=== PATIENT | female | born 1965 | race Two or more races ===

== ENCOUNTER 2023-12-17 15:00 | Inpatient (IN) | payer SELFPAY ==
[~2023-12-17] VITALS: Ht 154.9 cm; Wt 76.7 kg
[2023-12-17 17:58] LABS: CALCIUM, SERUM 7.8 mg/dL (8.5-10.1); CARBON DIOXIDE 19 mmol/L (21-32); CHLORIDE 113 mmol/L (98-107); CREATININE 2.3 mg/dL (0.6-1.3); GLUCOSE 87 mg/dL (74-106); POTASSIUM 5.6 mmol/L (3.5-5.1); SODIUM SERUM 139 mmol/L (136-145); UREA NITROGEN, BLOOD 63 mg/dL (7-18)
[2023-12-17 18:01] LABS: SITE, VBG Right Radial; VBG BASE EXCESS -6.2 mmol/L (-3-3); VBG COHb 0.3 %; VBG MetHb 0.4 %; VBG O2Hb 95.1 %; VBG OXYGEN SATURATION 95.8 %; VBG PCO2 31.4 mmHg (40-52); VBG PH 7.379 (7.31-7.41); VBG PO2 84.3 mmHg (30-50); VBG TOTAL HEMOGLOBIN 9.2 G/dL (12.0-16.0); VENT MODE, VBG 21%
[2023-12-17 18:04] LABS: BASOPHILS # (AUTO) 0.1 K/uL (0.0-0.2); BASOPHILS % (AUTO) 0.8 % (0.0-2.0); EOSINOPHILS # (AUTO) 0.1 K/uL (0.0-0.7); EOSINOPHILS % (AUTO) 1.6 % (0.0-6.0); HEMATOCRIT 28 % (33-45); HEMOGLOBIN 8.5 g/dL (11.5-14.8); LYMPHOCYTES # (AUTO) 0.6 K/uL (0.8-4.8); LYMPHOCYTES % (AUTO) 9.6 % (20.0-44.0); MEAN CORPUSCULAR HEMOGLOBIN 28 PG (26.0-33.0); MEAN CORPUSCULAR HGB CONC 31 g/dl (31.0-36.0); MEAN CORPUSCULAR VOLUME 92 fL (82-100); MONOCYTES # (AUTO) 0.6 K/uL (0.1-1.30); MONOCYTES % (AUTO) 9.5 % (2.0-12.0); NEUTROPHILS # (AUTO) 5.3 K/uL (1.8-8.9); NEUTROPHILS % (AUTO) 78.5 % (43.0-81.0); PLATELET COUNT (AUTO) 161 K/uL (150-450); RED BLOOD CELL COUNT(AUTO) 3.01 MIL/uL (4.0-5.2); RED CELL DISTRIBUTION WIDTH 18.1 % (11.5-15.0); WHITE BLOOD COUNT (AUTO) 6.7 K/uL (4.3-11.0)
[2023-12-17 18:07] LABS: LACTIC ACID 0.8 mmol/L (0.4-2.0)
[2023-12-17] MEDS ORDERED: FUROSEMIDE 40 MG/4 ML VIAL ONE (19:05)
[2023-12-17] MEDS ORDERED: PIPERACI/TAZO 3.375GM/D5W 50ML PB IV ONE (19:05)
[2023-12-17] MEDS: PIPERACILLIN /TAZOBACTAM 3.375 G in IV D5W 50 ML IV ONE (19:13)
[2023-12-17] MEDS: FUROSEMIDE 100 MG/10 ML VIAL IV ONE (19:13)
[2023-12-17] MEDS: LACTULOSE 10 G/15 ML UDC (PYXIS) PO ONE (19:38)
[2023-12-17] MEDS ORDERED: LACTULOSE 10 G/15 ML UDC (PYXIS) ONE (19:38)
[2023-12-17] MEDS ORDERED: ZOLPIDEM TARTRATE 5 MG TABLET PO PRN (23:30)
[2023-12-17] MEDS ORDERED: Z GUARD REMEDY 4 OZ OINT TP PRN (23:30)
[2023-12-18] VITALS: BP 147/77; TEMP 97.5; O2SAT 98
[2023-12-18] MEDS ORDERED: VANCOMYCIN 500 MG VIAL ONE (00:31)
[2023-12-18] MEDS: FUROSEMIDE 40 MG/4 ML VIAL IV SCH ×2 (00:37→18:20)
[2023-12-18] MEDS: LACTULOSE 10 G/15 ML UDC (PYXIS) PO SCH (00:37)
[2023-12-18] MEDS: VANCOMYCIN HCL 1.25 GM in IV D5W 250 ML IV ONE (00:38)
[2023-12-18 06:12] VITALS: BP 124/93; TEMP 97.5; O2SAT 100
[2023-12-18] MEDS: BLOOD SUGAR DIAGNOSTIC 1 EACH STRIP IN SCH (06:42)
[2023-12-18] MEDS: INSULIN REGULAR, HUMAN 100 UNIT/ML 3 ML VIAL SQ PRN (06:42)
[2023-12-18 07:20] LABS: BASOPHILS # (AUTO) 0.1 K/uL (0.0-0.2); BASOPHILS % (AUTO) 0.9 % (0.0-2.0); EOSINOPHILS # (AUTO) 0.1 K/uL (0.0-0.7); EOSINOPHILS % (AUTO) 1.4 % (0.0-6.0); HEMATOCRIT 27 % (33-45); HEMOGLOBIN 8.3 g/dL (11.5-14.8); LYMPHOCYTES # (AUTO) 0.7 K/uL (0.8-4.8); LYMPHOCYTES % (AUTO) 10.2 % (20.0-44.0); MEAN CORPUSCULAR HEMOGLOBIN 29 PG (26.0-33.0); MEAN CORPUSCULAR HGB CONC 31 g/dl (31.0-36.0); MEAN CORPUSCULAR VOLUME 95 fL (82-100); MONOCYTES # (AUTO) 0.9 K/uL (0.1-1.30); NEUTROPHILS # (AUTO) 5.4 K/uL (1.8-8.9); NEUTROPHILS % (AUTO) 75.5 % (43.0-81.0); PLATELET COUNT (AUTO) 153 K/uL (150-450); RED BLOOD CELL COUNT(AUTO) 2.86 MIL/uL (4.0-5.2); RED CELL DISTRIBUTION WIDTH 18.8 % (11.5-15.0); WHITE BLOOD COUNT (AUTO) 7.1 K/uL (4.3-11.0)
[2023-12-18 07:30] VITALS: BP 126/56; TEMP 98.4; O2SAT 98
[2023-12-18 07:52] LABS: CREATININE 2.5 mg/dL (0.6-1.3); MAGNESIUM 2.1 mg/dL (1.8-2.4); PHOSPHORUS 4.6 mg/dL (2.5-4.9); POTASSIUM 5.2 mmol/L (3.5-5.1)
[2023-12-18 08:31] LABS: THYROID STIMULATING HORMONE 2.623 uIU/mL (0.358-3.74)
[2023-12-18] MEDS: PANTOPRAZOLE 40 MG TABLET.DR PO SCH (08:41)
[2023-12-18] MEDS: ENOXAPARIN SODIUM 30 MG/0.3 ML DISP.SYRIN SQ SCH (08:46)
[2023-12-18 16:00] VITALS: BP 161/80; TEMP 97.7; O2SAT 100
[2023-12-18 20:00] VITALS: BP 149/81; TEMP 97.9; O2SAT 98
[2023-12-18] MEDS: CEFEPIME 1 GM in IV D5W 50 ML IV SCH (21:27)
[2023-12-18 23:29] LABS: APPEARANCE,URINE CLEAR (CLEAR); BILIRUBIN,URINE NEGATIVE (NEGATIVE); BLOOD, URINE 1+ Ery/uL (NEGATIVE); COLOR,URINE YELLOW (YELLOW); KETONES,URINE NEGATIVE (NEGATIVE); LEUKOCYTE ESTERASE ,URINE NEGATIVE (NEGATIVE); NITRITE, URINE NEGATIVE (NEGATIVE); PH,URINE 5.5 (5.0-8.0); PROTEIN,URINE TRACE mg/dl (NEGATIVE); UGLUCOSE NEGATIVE (NEGATIVE); UROBILINOGEN,URINE 0.2 EU/dL (0.2)
[2023-12-18 23:30] LABS: ADD URINE CULTURE NO; BACTERIA,URINE Rare /HPF (None Seen); SQUAMOUS EPITHELIAL CELL,UR Rare /HPF (None Seen); WBC,URINE 0-2 /HPF (0-3)
[2023-12-19] VITALS: BP_SYST 147; BP_DIAS 84; BP_DIAS 89; TEMP 97.5; O2SAT 97
[2023-12-19 04:00] VITALS: BP_SYST 149; BP_SYST 151; BP_DIAS 73; BP_DIAS 81; TEMP 97.8; TEMP 97.9; O2SAT 96; O2SAT 98
[2023-12-19 06:49] LABS: APPEARANCE,URINE SLIGHTLY CLOUDY (CLEAR); BILIRUBIN,URINE NEGATIVE (NEGATIVE); BLOOD, URINE 2+ Ery/uL (NEGATIVE); COLOR,URINE YELLOW (YELLOW); KETONES,URINE NEGATIVE (NEGATIVE); LEUKOCYTE ESTERASE ,URINE 1+ (NEGATIVE); NITRITE, URINE NEGATIVE (NEGATIVE); PH,URINE 5.5 (5.0-8.0); PROTEIN,URINE 1+ mg/dl (NEGATIVE); UGLUCOSE NEGATIVE (NEGATIVE); UROBILINOGEN,URINE 0.2 EU/dL (0.2)
[2023-12-19 07:06] LABS: ADD URINE CULTURE YES; BACTERIA,URINE Rare /HPF (None Seen); SQUAMOUS EPITHELIAL CELL,UR Rare /HPF (None Seen)
[2023-12-19 07:21] LABS: BASOPHILS # (AUTO) 0.1 K/uL (0.0-0.2); BASOPHILS % (AUTO) 1.1 % (0.0-2.0); EOSINOPHILS # (AUTO) 0.2 K/uL (0.0-0.7); HEMATOCRIT 28 % (33-45); HEMOGLOBIN 8.6 g/dL (11.5-14.8); LYMPHOCYTES % (AUTO) 19.3 % (20.0-44.0); MEAN CORPUSCULAR HEMOGLOBIN 29 PG (26.0-33.0); MEAN CORPUSCULAR HGB CONC 31 g/dl (31.0-36.0); MEAN CORPUSCULAR VOLUME 92 fL (82-100); MONOCYTES # (AUTO) 0.5 K/uL (0.1-1.30); MONOCYTES % (AUTO) 10.4 % (2.0-12.0); NEUTROPHILS # (AUTO) 3.4 K/uL (1.8-8.9); NEUTROPHILS % (AUTO) 65.2 % (43.0-81.0); PLATELET COUNT (AUTO) 157 K/uL (150-450); RED BLOOD CELL COUNT(AUTO) 2.99 MIL/uL (4.0-5.2); RED CELL DISTRIBUTION WIDTH 18.7 % (11.5-15.0); WHITE BLOOD COUNT (AUTO) 5.2 K/uL (4.3-11.0)
[2023-12-19 07:22] LABS: EOSINOPHIL,URINE None Seen
[2023-12-19 07:30] VITALS: BP 165/87; TEMP 97.7; O2SAT 99
[2023-12-19 07:36] LABS: CREATININE, URINE 16.1 MG/DL (30.0-125.0)
[2023-12-19 07:48] LABS: ALBUMIN 2.1 g/dL (3.4-5.0); BILIRUBIN,TOTAL 0.6 mg/dL (0.2-1.0); CALCIUM, SERUM 8.2 mg/dL (8.5-10.1); CREATININE 2.4 mg/dL (0.6-1.3); PHOSPHORUS 4.6 mg/dL (2.5-4.9); POTASSIUM 4.9 mmol/L (3.5-5.1)
[2023-12-19] MEDS: NYSTATIN CREAM 15 GM TUBE TP SCH (13:00)
[2023-12-19] MEDS: VANCOMYCIN 1 GM in IV D5W 250 ML IV SCH (13:23)
[2023-12-19 16:13] VITALS: BP 143/78; TEMP 97.3; O2SAT 99
[2023-12-19 20:00] VITALS: BP 147/73; TEMP 97.6; O2SAT 99
[2023-12-19] MEDS: VANCOMYCIN 1 GM /D5W 250 ML PB IV ONE ×2 (22:52)
[2023-12-20] VITALS: BP 155/80; TEMP 98.2; O2SAT 99
[2023-12-20 04:00] VITALS: BP 146/79; TEMP 97.7; O2SAT 100
[2023-12-20 07:59] LABS: CALCIUM, SERUM 8.1 mg/dL (8.5-10.1); CREATININE 2.5 mg/dL (0.6-1.3)
[2023-12-20 08:42] VITALS: BP 166/88; TEMP 97.9; O2SAT 99
[2023-12-20 09:08] LABS: PTH, INTACT 68 pg/mL (15-65)
[2023-12-20 11:24] VITALS: BP 150/83; TEMP 98.5; O2SAT 98
[2023-12-20 15:47] VITALS: BP 158/79; TEMP 99.6; O2SAT 96
[2023-12-20] MEDS ORDERED: hydrALAZINE HCL IV 20 MG VIAL IV PRN (17:30)
[2023-12-20] MEDS: ASPIRIN EC 81 MG TABLET.DR PO SCH (18:01)
[2023-12-20] MEDS: METOPROLOL TARTRATE 25 MG TABLET PO SCH (18:02)
[2023-12-20 20:00] VITALS: BP 157/88; TEMP 98.4; O2SAT 99
[2023-12-20] MEDS: ATORVASTATIN 10 MG TABLET PO SCH (21:10)
[2023-12-21] VITALS: BP 136/73; TEMP 98.2; O2SAT 99
[2023-12-21 04:00] VITALS: BP 140/69; TEMP 97.9; O2SAT 100
[2023-12-21 07:00] VITALS: BP 148/76; TEMP 97.9; O2SAT 100
[2023-12-21 07:02] LABS: CREATININE 2.5 mg/dL (0.6-1.3); POTASSIUM 5.1 mmol/L (3.5-5.1)
[2023-12-21 16:00] VITALS: BP 134/65; TEMP 97.6; O2SAT 99
[2023-12-21 20:00] VITALS: BP 133/74; TEMP 97.5; O2SAT 100
[2023-12-21] MEDS: MAG HYDROX/AL HYDROX/SIMETH 30 ML UDC PO PRN (23:00)
[2023-12-21] MEDS: VANCOMYCIN 750 MG in IV D5W 250 ML IV SCH (23:05)
[2023-12-22] VITALS: BP 134/84; TEMP 98.4; O2SAT 100
[2023-12-22] MEDS: HYDROCODONE/APAP 5/325MG TABLET PO PRN (01:39)
[2023-12-22 04:00] VITALS: BP 146/75; TEMP 97.6; O2SAT 97
[2023-12-22 04:51] VITALS: BP 146/75; TEMP 97.6; O2SAT 97
[2023-12-22 07:41] LABS: CALCIUM, SERUM 7.9 mg/dL (8.5-10.1); CREATININE 2.6 mg/dL (0.6-1.3); POTASSIUM 5.7 mmol/L (3.5-5.1)
[2023-12-22 08:00] VITALS: BP 134/83; TEMP 97.5; O2SAT 99
[2023-12-22] MEDS ORDERED: SODIUM BICARBONATE SYR 50 MEQ/50 ML DISP.SYRIN IV ONE (08:30)
[2023-12-22] MEDS: SODIUM POLYSTYRENE SULFONATE 15 G/60 ML BOTTLE PO ONE ×2 (08:30→11:46)
[2023-12-22] MEDS ORDERED: ONDANSETRON HCL 4 MG/5 ML SOLUTION PO PRN (09:00)
[2023-12-22] MEDS: CITRIC ACID/SODIUM CITRATE (BICITRA)15 ML UDC PO SCH (09:40)
[2023-12-22 14:57] LABS: BILIRUBIN,TOTAL 0.5 mg/dL (0.2-1.0); CALCIUM, SERUM 7.9 mg/dL (8.5-10.1); CREATININE 2.7 mg/dL (0.6-1.3); POTASSIUM 5.4 mmol/L (3.5-5.1); TOTAL PROTEIN, SERUM 7.5 g/dL (6.4-8.2)
[2023-12-22 16:00] VITALS: BP 150/81; TEMP 97.3; O2SAT 99
[2023-12-22 20:00] VITALS: BP 132/66; TEMP 97; O2SAT 97
[2023-12-23] VITALS: BP 133/71; TEMP 97.4; O2SAT 98
[2023-12-23 05:00] VITALS: BP 135/53; TEMP 97.3; O2SAT 97
[2023-12-23 07:11] LABS: *SPE A/G RATIO 0.5 (0.7-1.7); *SPE ALBUMIN 2.4 g/dL (2.9-4.4); *SPE ALPHA-1-GLOBULIN 0.3 g/dL (0.0-0.4); *SPE ALPHA-2-GLOBULIN 0.6 g/dL (0.4-1.0); *SPE BETA GLOBULIN 0.9 g/dL (0.7-1.3); *SPE GLOBULIN, TOTAL 4.9 g/dL (2.2-3.9); *SPE M-SPIKE Not Observed g/dL (Not Observed); *SPE PROTEIN TOTAL 7.3 g/dL (6.0-8.5); *SPEGAMMA GLOBULIN 3.1 g/dL (0.4-1.8)
[2023-12-23 07:42] LABS: CALCIUM, SERUM 7.6 mg/dL (8.5-10.1); CREATININE 2.6 mg/dL (0.6-1.3); POTASSIUM 4.9 mmol/L (3.5-5.1)
[2023-12-23 08:00] VITALS: BP 145/68; TEMP 96.4; O2SAT 100
[2023-12-23] MEDS: ONDANSETRON 4 MG TAB.RAPDIS PO PRN (08:47)
[2023-12-23 12:00] VITALS: BP 138/65; TEMP 97.9; O2SAT 95
[2023-12-23 16:00] VITALS: BP 161/71; TEMP 96.4; O2SAT 100
[2023-12-23] MEDS: ONDANSETRON HCL/PF 4 MG/2 ML VIAL IV PRN (17:03)
[2023-12-23 20:00] VITALS: BP 143/73; TEMP 97.5; O2SAT 100
[2023-12-23] MEDS: ATORVASTATIN 10 MG TABLET PO SCH (21:58)
[2023-12-24] VITALS (7 sets, daily range): BP systolic 135–154; BP diastolic 65–95; TEMP 96.4–97.7; O2SAT 98–100
[2023-12-25] VITALS: BP 124/65; TEMP 97.9; O2SAT 99
[2023-12-25 04:00] VITALS: BP 161/87; TEMP 97.7; O2SAT 98
[2023-12-25 05:40] VITALS: BP 141/78; TEMP 97.7; O2SAT 98
[2023-12-25 08:00] VITALS: BP 143/73; TEMP 97.7; O2SAT 100
[2023-12-25] MEDS: LOSARTAN POTASSIUM 25 MG TABLET PO SCH (09:27)
[2023-12-25 10:26] LABS: BASOPHILS # (AUTO) 0.1 K/uL (0.0-0.2); BASOPHILS % (AUTO) 2.9 % (0.0-2.0); EOSINOPHILS # (AUTO) 0.2 K/uL (0.0-0.7); EOSINOPHILS % (AUTO) 4.5 % (0.0-6.0); HEMATOCRIT 27 % (33-45); HEMOGLOBIN 8.5 g/dL (11.5-14.8); LYMPHOCYTES # (AUTO) 0.8 K/uL (0.8-4.8); LYMPHOCYTES % (AUTO) 20.3 % (20.0-44.0); MEAN CORPUSCULAR HEMOGLOBIN 29 PG (26.0-33.0); MEAN CORPUSCULAR HGB CONC 31 g/dl (31.0-36.0); MEAN CORPUSCULAR VOLUME 92 fL (82-100); MONOCYTES # (AUTO) 0.5 K/uL (0.1-1.30); NEUTROPHILS # (AUTO) 2.4 K/uL (1.8-8.9); NEUTROPHILS % (AUTO) 59.3 % (43.0-81.0); PLATELET COUNT (AUTO) 175 K/uL (150-450); RED BLOOD CELL COUNT(AUTO) 2.97 MIL/uL (4.0-5.2); RED CELL DISTRIBUTION WIDTH 18.4 % (11.5-15.0)
[2023-12-25 10:55] LABS: BILIRUBIN,TOTAL 0.5 mg/dL (0.2-1.0); CALCIUM, SERUM 7.8 mg/dL (8.5-10.1); CREATININE 2.7 mg/dL (0.6-1.3); MAGNESIUM 2.1 mg/dL (1.8-2.4); PHOSPHORUS 4.4 mg/dL (2.5-4.9); POTASSIUM 4.9 mmol/L (3.5-5.1); TOTAL PROTEIN, SERUM 7.4 g/dL (6.4-8.2)
[2023-12-25 16:00] VITALS: BP 139/72; TEMP 97.7; O2SAT 100
[2023-12-25] MEDS: ACETAMINOPHEN 325 MG TABLET PO PRN (16:27)
[2023-12-25 20:00] VITALS: BP 137/79; TEMP 97.8; O2SAT 100
[2023-12-25] MEDS: DOXYCYCLINE HYCLATE (100 MG) 100 MG TABLET PO SCH (21:04)
[2023-12-26] VITALS (7 sets, daily range): BP systolic 123–158; BP diastolic 84–101; TEMP 97.3–98.1; O2SAT 96–100
[2023-12-26] MEDS: METOPROLOL TARTRATE 25 MG TABLET PO SCH (21:44)
[2023-12-27] VITALS: BP 149/86; TEMP 97.5; O2SAT 100
[2023-12-27 04:00] VITALS: BP 159/83; TEMP 97.5; O2SAT 97
[2023-12-27] MEDS ORDERED: DEXTROSE 50%-WATER 50 ML DISP.SYRIN ONE (06:27)
[2023-12-27] MEDS: DEXTROSE 50%-WATER 50 ML DISP.SYRIN IV PRN (06:29)
[2023-12-27 07:30] VITALS: BP 154/88; TEMP 98.1; O2SAT 98
[2023-12-27] MEDS: LOSARTAN POTASSIUM 25 MG TABLET PO SCH (09:10)
[2023-12-27 16:00] VITALS: BP 153/75; TEMP 98.5; O2SAT 100
[2023-12-27 20:00] VITALS: BP 154/90; TEMP 97.5; O2SAT 99
[2023-12-28] VITALS: BP 151/80; TEMP 97.5; O2SAT 100
[2023-12-28 04:00] VITALS: BP 154/70; TEMP 97.5; O2SAT 100
[2023-12-28 07:30] VITALS: BP 150/91; TEMP 97.5; O2SAT 99
[2023-12-28 09:49] VITALS: BP 150/91
[2023-12-28] MEDS ORDERED: METO25TA20 PO (10:27)
[2023-12-28] MEDS ORDERED: ASPI-1169 PO (10:27)
[2023-12-28] MEDS ORDERED: CITR15SO PO (10:27)
[2023-12-28] MEDS ORDERED: LOSA25TA27 PO (10:27)
[2023-12-28] MEDS ORDERED: PANT40TA49 PO (10:27)
[2023-12-28] MEDS ORDERED: ATOR10TA PO (10:27)
[2023-12-28] MEDS ORDERED: NYST15CR TP (10:27)
[2023-12-28] MEDS ORDERED: DOXY100T2 PO (10:27)
[2023-12-28] MEDS ORDERED: FURO-144 PO (10:32)
[2023-12-28] MEDS ORDERED: SACU1TAB7 PO (10:32)
== END 2023-12-28 15:35 | disposition home or self-care (01) | DRG 291 ==
LOC: ER 15:03 → TELE 20:17
PROVIDERS: ATTEND Internal Medicine
DX: I13.0 Hypertensive heart and chronic kidney disease with heart failure and stage 1 through stage 4 chronic kidney disease, or unspecified chronic kidney disease (principal); I50.23 Acute on chronic systolic (congestive) heart failure; R53.2 Functional quadriplegia; K76.7 Hepatorenal syndrome; N17.9 Acute kidney failure, unspecified; L03.116 Cellulitis of left lower limb; L03.115 Cellulitis of right lower limb; L97.518 Non-pressure chronic ulcer of other part of right foot with other specified severity; L97.528 Non-pressure chronic ulcer of other part of left foot with other specified severity; R18.8 Other ascites; I42.9 Cardiomyopathy, unspecified; E78.5 Hyperlipidemia, unspecified; E87.5 Hyperkalemia; R62.7 Adult failure to thrive; N18.9 Chronic kidney disease, unspecified; K74.60 Unspecified cirrhosis of liver; Z79.4 Long term (current) use of insulin; Z87.01 Personal history of pneumonia (recurrent); K75.81 Nonalcoholic steatohepatitis (NASH); D63.8 Anemia in other chronic diseases classified elsewhere; E11.621 Type 2 diabetes mellitus with foot ulcer; E11.610 Type 2 diabetes mellitus with diabetic neuropathic arthropathy; E11.42 Type 2 diabetes mellitus with diabetic polyneuropathy; E11.22 Type 2 diabetes mellitus with diabetic chronic kidney disease; D63.1 Anemia in chronic kidney disease; B37.31 Acute candidiasis of vulva and vagina; Z68.31 Body mass index [BMI] 31.0-31.9, adult
CPT/HCPCS: 36415; 36600; 71045-TC; 71250-TC; 73610-TC; 73630-TC; 73718-TC; 76700-TC; 80048-TC; 80053-TC; 80061-TC; 80202-TC; 81001; 82140-TC; 82550-TC; 82570-TC; 82803-TC; 82962-TC; 83605-TC; 83735-TC; 83880; 83970; 84100-TC; 84155; 84165; 84300-TC; 84443-TC; 84484-TC; 85025-TC; 85378-TC; 87040-TC; 87086-TC; 93307-TC; 93971-TC; 94799-TC; 97110-TC; 97530-TC; 97535-TC; A4223; G0378; J0692; J1650; J1815; J1940; J2405; J2543; J3370; J3371; J7050; J7060; Q0162